=== PATIENT | male | born 1970 | race Caucasian/White ===

== ENCOUNTER 2020-03-20 08:56 | Emergency (ER) | payer MEDICAID ==
[~2020-03-20] VITALS: Ht 177.8 cm; Wt 78.9 kg
[2020-03-20 09:10] VITALS: BP 142/83
[2020-03-20] MEDS ORDERED: DexAMETHasone SOD PHOS 10MG/1ML VIAL INJ IM ONE (10:30)
[2020-03-20] MEDS ORDERED: FAMOTIDINE 20 MG TAB PO ONE (10:30)
[2020-03-20] MEDS ORDERED: diphenhdrAMINE HCL 50 MG/1 ML VL IM ONE (10:30)
== END 2020-03-20 11:14 | disposition home or self-care (01) ==
LOC: ER 08:56
DX: L50.9 Urticaria, unspecified (principal); F17.210 Nicotine dependence, cigarettes, uncomplicated
CPT/HCPCS: 96372; 99284; J1100; J1200